=== PATIENT | female | born 1945 | race Caucasian/White ===

== ENCOUNTER → 2016-05-14 | Outpatient (REF) | payer MEDICARE ==
[~2016-05-14] MED LIST: /WARF25TA OR; ACET500C PO; ACET65TA OR; AMLO5TAB2 PO; ATEN50TA2 PO; BABY81CH OR; CODE30TA PO; DYAZ37.5 OR; ELIQ5TAB PO; FISH300C2 OR; HYDR25TA6; IBUPOTC PO; KLOR10TA OR; LEVA250T PO; LEVA500T PO; MAGN400T2 PO; ONDA4TAB6 PO; PERC5TAB8 OR; PERC7.5T8 OR; SIMV10TA2 PO; VICO5TAB OR; VIT D 4000 OR; VITA100066 PO; VOLT1GEL TD; ZEST20TA4 OR
== END ==
LOC: M LAB REF 16:21
PROVIDERS: ATTEND Nurse Practitioner Adult Health
DX: N39.0 Urinary tract infection, site not specified (principal)

== ENCOUNTER 2016-06-22 13:27 | Emergency (ER) | payer MEDICARE ==
[~2016-06-22] VITALS: Ht 167.6 cm; Wt 110.7 kg
[2016-06-22] MEDS ORDERED: ASPIRIN 81 MG CHEW TABLET PO ONE (14:00)
[2016-06-22 14:22] LABS: BASO % 0.4 % (0.0-1.0); EOS # 0.1 K/mm3 (0.0-0.50); EOS % 1.6 % (0.0-3.0); LARGE UNSTAINED CELL # 0.2 K/mm3 (0.0-0.4); LARGE UNSTAINED CELL % 2.5 % (0.0-4.0); LYMPH # 1.8 K/mm3 (1.5-4.5); MEAN CORPUSCULAR HEMOGLOBIN 29.7 pg (27.0-33.0); MEAN CORPUSCULAR HGB CONC 32.6 g/dl (32.0-36.5); MONO # 0.7 K/mm3 (0.0-0.8); MONO % 8.3 % (0.0-5.0); NEUTROPHILS # 5.8 K/mm3 (1.8-7.7); NEUTROPHILS % 66.2 % (36.0-66.0); PLATELET COUNT, AUTOMATED 266 k/mm3 (150-450); RED CELL DISTRIBUTION WIDTH 12.9 % (11.5-14.5); WHITE BLOOD COUNT 8.7 K/mm3 (4.0-10.0)
--- NOTE | 2016-06-22 14:44 | REP ---
AP PORTABLE CHEST: 06/22/2016. Clinical history: Chest pain. Comparison CT chest 01/24/2016, two-view chest 02/24/2015, 02/17/2015. Findings: The lung shields are well inflated. The CP angles sharply defined. There is no effusion, lateral pleural thickening or dense consolidation. Minor apical scarring. Tiny parenchymal nodules on CT are not visible radiographically. There is no mass or nodule definitely identified. Infrahilar fibrotic changes bilaterally, stable. Heart not grossly enlarged. Left atrium mildly enlarged. The aorta is mildly tortuous without aneurysm. Airway intact. There is no vascular redistribution or edema. There are degenerative changes in the spine without compression deformity. Impression: 1. COPD and basilar fibrotic change without acute infiltrate, cardiomegaly, edema, atelectasis or mass. Signed by Ray Merrill MD 06/22/2016 08:29 P
[2016-06-22 14:53] LABS: ALBUMIN 3.6 GM/DL (3.2-5.2); ALBUMIN/GLOBULIN RATIO 1.24 (1.00-1.93); ALKALINE PHOSPHATASE 106 U/L (45-117); ALT/SGPT < 6 U/L (12-78); ANION GAP 8 MEQ/L (8-16); AST/SGOT 12 U/L (15-37); BILIRUBIN,DIRECT < 0.1 MG/DL (0.0-0.2); BILIRUBIN,TOTAL 0.3 MG/DL (0.2-1.0); BLOOD UREA NITROGEN 10 MG/DL (7-18); CALCIUM LEVEL 8.7 MG/DL (8.8-10.2); CARBON DIOXIDE LEVEL 26 MEQ/L (21-32); CHLORIDE LEVEL 108 MEQ/L (98-107); CREATININE FOR GFR 0.66 MG/DL (0.55-1.02); GLOMERULAR FILTRATION RATE > 60.0 (>39); GLUCOSE, FASTING 108 MG/DL (83-110); SODIUM LEVEL 142 MEQ/L (136-145); TOTAL PROTEIN 6.5 GM/DL (6.4-8.2)
[2016-06-22] MEDS ORDERED: PANTOPRAZOLE 40MG TAB (PROTONIX) PO ONE (17:00)
[2016-06-22] MEDS ORDERED: PROT1TAB2 PO (17:01)
[2016-06-22 17:14] VITALS: BP 135/68
--- NOTE | 2016-06-23 20:53 | ECGEPIP ---
Stationary ECG Study [facility] - ED Test Date: 2016-06-22 Pat Name: DELFINO CURTIS Department: Room: - Gender: F Cost Estimator: ct : 1945 Requested By: Singh Asif Order Number: [id number] Reading MD: Latonya Rubio Measurements Intervals [place] Rate: 62 P: 10 TX: 162 QRS: -1 QRSD: 89 T: -1 QT: 443 QTc: 451 Interpretive Statements SINUS RHYTHM NSTTW ABNORMALITY DECREASED RATE 02/20/15 Electronically Signed On 06-23-2016 20:53:18 EDT by Latonya Rubio
--- NOTE | 2016-06-23 20:58 | ECGEPIP ---
Stationary ECG Study [facility] - ED Test Date: 2016-06-22 Pat Name: DELFINO CURTIS Department: Room: - Gender: F [employer] Officer: sherman : 1945 Requested By: Singh Asif Order Number: [id number] Reading MD: Latonya Rubio Measurements Intervals [place] Rate: 54 P: 13 NH: 170 QRS: -1 QRSD: 91 T: -3 QT: 462 QTc: 439 Interpretive Statements SINUS BRADYCARDIA NSTTW ABNORMALITY DECREASED RATE 06/22/16 13:45 Electronically Signed On 06-23-2016 20:58:16 EDT by Latonya Rubio
== END 2016-06-22 17:16 | disposition home or self-care (01) ==
LOC: M ED 13:58
DX: K21.9 Gastro-esophageal reflux disease without esophagitis (principal); R07.89 Other chest pain; I48.91 Unspecified atrial fibrillation; G47.30 Sleep apnea, unspecified; E66.9 Obesity, unspecified; Z88.0 Allergy status to penicillin; Z79.899 Other long term (current) drug therapy; K44.9 Diaphragmatic hernia without obstruction or gangrene; M54.9 Dorsalgia, unspecified; Z79.82 Long term (current) use of aspirin

== ENCOUNTER → 2016-09-13 | Outpatient (REF) | payer MEDICARE ==
[~2016-09-13] MED LIST changes: +LEVA1TAB PO; +LEVA1TAB2 PO; -LEVA250T PO; -LEVA500T PO; +PROBCAP4 PO; +PROT1TAB2 PO; +primrose oil PO
== END ==
LOC: M LAB REF 16:49
PROVIDERS: ATTEND Internal Medicine Nephrology
DX: I70.1 Atherosclerosis of renal artery (principal)

== ENCOUNTER → 2016-09-30 | Outpatient (CLI) | payer MEDICARE ==
[~2016-09-30] VITALS: Ht 167.6 cm; Wt 106.6 kg
[~2016-09-30] MED LIST changes: +NS 1,000 ML IV ONE; +PROPOFOL 200 MG/20 ML VIAL As Ordered ONE
--- NOTE | 2016-09-30 09:08 | ROOR ---
Patient Name: Ute Dupont Procedure Date: 09/30/2016 8:37 AM Date of : 1945 Age: 71 Room: [facility] Gender: Female Note Status: Finalized Procedure: Total Colonoscopy to Cecum + ileoscopy + Bx Indications: Rectal bleeding, Change in bowel habits Providers: Leon Ramirez MD Referring MD: Whitney Contreras NP Requesting Provider: Medicines: Monitored Anesthesia Care Complications: No immediate complications. Procedure: Pre-Anesthesia Assessment: - The heart rate, respiratory rate, oxygen saturations, blood pressure, adequacy of pulmonary ventilation, and response to care were monitored throughout the procedure. The Colonoscope was introduced through the anus and advanced to the terminal ileum, with identification of the appendiceal orifice and IC valve. Findings: The perianal and digital rectal examinations were normal. Non-bleeding internal hemorrhoids were found during retroflexion. The hemorrhoids were small and Grade I (internal hemorrhoids that do not prolapse). No other significant abnormalities were identified in a careful examination of the remainder of the colon. The terminal ileum appeared normal. Biopsies for histology were taken with a cold forceps from the ascending colon and transverse colon for evaluation of microscopic colitis. The exam was otherwise without abnormality on direct and retroflexion views. Impression: - Non-bleeding internal hemorrhoids. - The examined portion of the ileum was normal. - The examination was otherwise normal on direct and retroflexion views. - Biopsies were taken with a cold forceps from the ascending colon and transverse colon for evaluation of microscopic colitis. - The exam was otherwise normal to the cecum. Recommendation: - Patient has a contact number available for emergencies. The signs and symptoms of potential delayed complications were discussed with the patient. Return to normal activities tomorrow. Written discharge instructions were provided to the patient. - High fiber diet. - Continue present medications. - Discharge patient to home. - Continue present medications. - Await pathology results. - Telephone GI clinic for pathology results in 1 week. - Repeat colonoscopy for symptoms only. - Return to referring physician. - Check Portal Online for Path Results.([email or web address]) - The findings and recommendations were discussed with the patient's family. Leon Ramirez MD Leon Ramirez MD 09/30/2016 9:07:41 AM This report has been signed electronically. Number of Addenda: 0 Note Initiated On: 09/30/2016 8:37 AM Estimated Blood Loss: Estimated blood loss: none.
[2016-09-30 09:31] VITALS: BP 136/78
== END | disposition home or self-care (01) ==
LOC: M OPP 07:22
PROVIDERS: ATTEND Internal Medicine Gastroenterology
DX: K62.5 Hemorrhage of anus and rectum (principal); R19.4 Change in bowel habit; K64.0 First degree hemorrhoids; I48.91 Unspecified atrial fibrillation; I10 Essential (primary) hypertension; E78.5 Hyperlipidemia, unspecified; Z87.19 Personal history of other diseases of the digestive system; R06.02 Shortness of breath; R51 Headache; Z78.0 Asymptomatic menopausal state; G47.8 Other sleep disorders; G47.30 Sleep apnea, unspecified; R06.83 Snoring; K82.9 Disease of gallbladder, unspecified; Z88.0 Allergy status to penicillin; Z79.899 Other long term (current) drug therapy

== ENCOUNTER → 2016-12-18 | Outpatient (REF) | payer MEDICARE ==
[~2016-12-18] MED LIST changes: -NS 1,000 ML IV ONE; -PROPOFOL 200 MG/20 ML VIAL As Ordered ONE
== END ==
LOC: M SMT 17:17
PROVIDERS: ATTEND Urology
DX: R30.0 Dysuria (principal)

== ENCOUNTER 2017-07-03 20:19 | Emergency (ER) | payer MEDICARE ==
[2017-07-03 22:22] LABS: BASO % 0.4 % (0.0-1.0); EOS # 0.2 10^3/uL (0.0-0.50); EOS % 1.5 % (0.0-3.0); HEMATOCRIT 41.6 % (36.0-47.0); HEMOGLOBIN 13.7 g/dl (12.0-15.5); IMMATURE GRANULOCYTE % 0.3 % (0-3.0); LYMPH # 2.9 10^3/uL (1.5-4.5); LYMPH % 27.2 % (24.0-44.0); MEAN CORPUSCULAR HEMOGLOBIN 29.7 pg (27.0-33.0); MEAN CORPUSCULAR HGB CONC 32.9 g/dl (32.0-36.5); MONO # 1.2 10^3/uL (0.0-0.8); MONO % 11.3 % (0.0-5.0); NEUTROPHILS # 6.3 10^3/uL (1.8-7.7); NEUTROPHILS % 59.3 % (36.0-66.0); PLATELET COUNT, AUTOMATED 260 10^3/uL (150-450); RED BLOOD COUNT 4.62 10^6/uL (4.00-5.40); RED CELL DISTRIBUTION WIDTH 12.9 % (11.5-14.5); WHITE BLOOD COUNT 10.5 10^3/uL (4.0-10.0)
[2017-07-03 22:48] LABS: ANION GAP 6 MEQ/L (8-16); BLOOD UREA NITROGEN 16 MG/DL (7-18); CALCIUM LEVEL 8.8 MG/DL (8.8-10.2); CARBON DIOXIDE LEVEL 28 MEQ/L (21-32); CHLORIDE LEVEL 109 MEQ/L (98-107); CPK CREATINE PHOSPHOKINASE 51 U/L (26-192); CREATININE FOR GFR 0.82 MG/DL (0.55-1.30); FREE THYROXINE INDEX 4.3 % (1.3-4.8); GLOMERULAR FILTRATION RATE > 60.0 (>39); GLUCOSE, FASTING 114 MG/DL (70-100); POTASSIUM SERUM 3.9 MEQ/L (3.5-5.1); SODIUM LEVEL 143 MEQ/L (136-145); T UPTAKE 34 % (30-39); THYROXINE (T4) 12.5 UG/DL (4.5-12.0); TROPONIN I < 0.02 NG/ML (< 0.10)
[2017-07-03 22:53] LABS: CK-MB VALUE MASS < 1.0 NG/ML (<3.6); MB/CK RELATIVE INDEX 1.96 (< OR =4)
== END 2017-07-03 23:51 | disposition home or self-care (01) ==
LOC: M ED 20:19
DX: Z86.79 Personal history of other diseases of the circulatory system (principal); R19.7 Diarrhea, unspecified; I48.91 Unspecified atrial fibrillation; K21.9 Gastro-esophageal reflux disease without esophagitis; Z79.899 Other long term (current) drug therapy; Z88.0 Allergy status to penicillin
CPT/HCPCS: 93005

== ENCOUNTER → 2017-07-03 | Outpatient (REF) | payer MEDICARE | LOC: M LAB REF 12:40 | DX: R19.7 Diarrhea, unspecified (principal) ==

== ENCOUNTER → 2018-01-06 | Outpatient (CLI) | payer MEDICARE | LOC: M LRY 15:21 | DX: R05 Cough (principal) | CPT/HCPCS: 71046; G0463 ==

== ENCOUNTER → 2018-01-22 | Outpatient (CLI) | payer MEDICARE ==
[~2018-01-22] MED LIST changes: -/WARF25TA OR; -ACET500C PO; -ACET65TA OR; +ALBUTEROL SULFATE 2.5 MG/0.5 ML INH NEB SOLN INH; -AMLO5TAB2 PO; -ATEN50TA2 PO; -BABY81CH OR; -CODE30TA PO; -DYAZ37.5 OR; -ELIQ5TAB PO; -FISH300C2 OR; -HYDR25TA6; -IBUPOTC PO; +ISOVUE-370 76% 100ML VIAL (Q9967) As Ordered; -KLOR10TA OR; -LEVA1TAB PO; -LEVA1TAB2 PO; +LIDOCAINE 4% INJ 5 ML AMP NEB; -MAGN400T2 PO; -ONDA4TAB6 PO; -PERC5TAB8 OR; -PERC7.5T8 OR; -PROBCAP4 PO; -PROT1TAB2 PO; -SIMV10TA2 PO; -VICO5TAB OR; -VIT D 4000 OR; -VITA100066 PO; -VOLT1GEL TD; -ZEST20TA4 OR; -primrose oil PO
== END ==
LOC: M RAD 10:11
DX: R91.1 Solitary pulmonary nodule (principal); R05 Cough; R91.8 Other nonspecific abnormal finding of lung field
CPT/HCPCS: Q9967

== ENCOUNTER → 2018-10-30 | Outpatient (REF) | payer MEDICARE ==
[~2018-10-30] MED LIST changes: +ACET500C PO; +ACET65TA OR; -ALBUTEROL SULFATE 2.5 MG/0.5 ML INH NEB SOLN INH; +AMLO5TAB6 PO; +ATEN50TA2 PO; +BABY81CH OR; +CODE30TA PO; +COUM1TAB18 OR; +DYAZ37.5 OR; +ELIQ5TAB PO; +FISH300C2 OR; +FLEC50HA PO; +HYDR25TA6; +IBUPOTC PO; -ISOVUE-370 76% 100ML VIAL (Q9967) As Ordered; +KLOR10TA OR; +LEVA1TAB2 PO; +LEVA250T13 PO; -LIDOCAINE 4% INJ 5 ML AMP NEB; +MAGN400T2 PO; +METO1TAB33 PO; +ONDA4TAB6 PO; +PERC5TAB8 OR; +PERC7.5T8 OR; +PROBCAP4 PO; +PROT1TAB2 PO; +SIMV10TA2 PO; +SIMV10TA21 PO; +VICO5TAB OR; +VIT D 4000 OR; +VITA100066 PO; +VOLT1GEL TD; +ZEST20TA4 OR; +primrose oil PO
== END ==
LOC: M SFHCLERA 12:30
PROVIDERS: ATTEND Nurse Practitioner Family
DX: R35.0 Frequency of micturition (principal)

== ENCOUNTER → 2018-10-30 | Outpatient (CLI) | payer MEDICARE ==
[~2018-10-30] MED LIST changes: -SIMV10TA21 PO
--- NOTE | 2018-10-30 14:48 | REP ---
REASON FOR EXAM: Dyspnea on exertion. COMPARISON: Multiple, the latest 01/06/2018. FINDINGS: The superior mediastinal structures are midline. The cardiac silhouette is unremarkable in size, shape, and position. The diaphragmatic surfaces of the lungs are regular, and the costophrenic angles are clear. The pulmonary shields are clear. The imaged osseous structures are intact. IMPRESSION: There is no acute cardiopulmonary disease. No change from the prior exam. Note is again made of an implanted device over the left anterior chest wall. Electronically Signed by Cali Roberson DO 10/30/2018 02:56 P
== END ==
LOC: M LRY 12:36
PROVIDERS: ATTEND Nurse Practitioner Family
DX: R06.09 Other forms of dyspnea (principal)
CPT/HCPCS: 71046; 81002; 93005; G0404; G0463

== ENCOUNTER → 2020-10-20 | Outpatient (REF) | payer MEDICARE ==
[~2020-10-20] MED LIST changes: +AMLO1TAB24 PO; -AMLO5TAB6 PO; +SIMV10TA21 PO
[2020-10-20 18:10] LABS: BACTERIA, URINE AUTO NEGATIVE (NEGATIVE); RBC, URINE AUTO 0 /HPF (0-3); SQUAMOUS EPITHELIAL CELL UR AU 0 /HPF (0-6); WBC, URINE AUTO 0 /HPF (0-3)
== END ==
LOC: M SMT 17:01
PROVIDERS: ATTEND Specialist
DX: R35.1 Nocturia (principal)
CPT/HCPCS: 81015; 87086; G0463

== ENCOUNTER → 2023-02-25 | Outpatient (CLI) | payer MEDICARE ==
[~2023-02-25] MED LIST changes: +METHACHOLINE KIT INH ONE
== END ==
LOC: M CARPUL 10:48
PROVIDERS: ATTEND Internal Medicine Critical Care Medicine
DX: J45.40 Moderate persistent asthma, uncomplicated (principal)
CPT/HCPCS: 94070; 95070; J7674

== ENCOUNTER → 2025-01-05 | Outpatient (CLI) | payer MEDICARE ==
[~2025-01-05] MED LIST changes: +BARIUM SULFATE 700 MG TABLET As Ordered ONE; +E-Z-PAQUE 96% w/w SUSP 176 GM BTL As Ordered ONE; -METHACHOLINE KIT INH ONE; +ONDA-282 PO; -ONDA4TAB6 PO; +VARIBAR NECTAR 40% w/v 240ML SUSP BTL As Ordered ONE; +VARIBAR PUDDING 40% w/v 230ML TUBE As Ordered ONE
== END ==
LOC: M RAD 13:24
PROVIDERS: ATTEND Internal Medicine Critical Care Medicine
DX: R13.10 Dysphagia, unspecified (principal)